=== PATIENT | female | born 1995 | race Two or more races ===

== ENCOUNTER 2024-07-07 20:12 | Emergency (ER) | payer MEDICAID ==
[~2024-07-07] VITALS: Ht 149.9 cm; Wt 81.0 kg
[2024-07-07 20:38] VITALS: BP 113/64; PULSE 88; RESP 16; O2SAT 100
--- NOTE | 2024-07-07 20:53 | ED.PDOC ---
History of Present Illness HPI Comments 28 y/o F, with a Hx of obesity and FMHx of DM, presents with c/o right-sided facial swelling and numbness, today. Patient endorses on unprovoked onset of symptoms at 1800, this evening. Patient comments on having no additional relevant or pertinent Hx aside from an isolated incident of facial swelling to her left-side that has since resolved on its own. 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 Patient denies having any speech or vision changes, tingling, fever, chills, or other associated symptoms or modifiers at this time. Time Seen by MD: 20:35 Reviewed Notes: Nurses Notes, Medications, Allergies Allergies: Coded Allergies: NO KNOWN ALLERGIES (Unverified , 07/07/24) Home Meds Active Scripts Methylprednisolone (Medrol Dosepak) 4 Mg Isaias, 4 MG PO UD, #21 TAB UAD Prov:PATT MO MD 07/07/24 Information Source: Patient Mode of Arrival: Ambulatory Severity: Moderate Timing: Hours Duration: Since onset Prehospital treatment: None Past Medical History Past Medical History (Other): obesity Surgical History: Denies all surgeries [employer] History: Denies all [employer] Hx Family History Family History: No family hx of Cancer, No family hx of Heart sonny, No family hx of HTN, No family hx ofKidney sonny, No family hx of Liver sonny, No family hx of Lung sonny, No family hx of Stroke, Family hx of DM Social History Smoker: Non-Smoker Alcohol: Denies ETOH Use Drugs: Denies Drug Use Lives In: Home Constitutional: denies: chills, diaphoresis, fatigue, fever, malaise, sweats, weakness, others EENTM: reports: others (right-sided facial swelling ); denies: blurred vision, double vision, ear bleeding, ear discharge, ear drainage, ear pain, ear ringing, eye pain, eye redness, hearing loss, mouth pain, mouth swelling, nasal discharge, nose bleeding, nose congestion, nose pain, photophobia, tearing, throat pain, throat swelling, voice changes Respiratory: denies: cough, hemoptysis, orthopnea, SOB at rest, shortness of breath, SOB with excertion, stridor, wheezing, others Cardiovascular: denies: chest pain, dizzy spells, diaphoresis, Dyspnea on exertion, edema, irregular heart beat, left arm pain, lightheadedness, palpitations, PND, syncope, others Gastrointestinal: denies: abdomen distended, abdominal pain, blood streaked bowels, constipated, diarrhea, dysphagia, difficulty swallowing, hematemesis, melena, nausea, poor appetite, poor fluid intake, rectal bleeding, rectal pain, vomiting, others Genitourinary: denies: abnormal vagina bleeding, burning, dyspareunia, dysuria, flank pain, frequency, hematuria, incontinence, pain, , vagina discharge, urgency, others Neurological: reports: numbness (right-side of face ); denies: dizziness, fainting, headache, left sided numbness, left sided weakness, paresthesia, pre-existing deficit, right sided numbness, right sided weakness, seizure, speech problems, tingling, tremors, weakness, others Musculoskeletal: denies: back pain, gout, joint pain, joint swelling, muscle pain, muscle stiffness, neck pain, others Integumetry: denies: bruises, change in color, change in hair/nails, dryness, laceration, lesions, lumps, rash, wounds, others Allergic/Immunocompromised: denies: Difficulty Healing, Frequent Infections, Hives, Itching, others Hematologic/Lymphatic: denies: anemia, blood clots, easy bleeding, easy bruising, swollen glands, others Endocrine: denies: excessive hunger, excessive sweating, excessive thirst, excessive urination, flushing, intolerance to cold, intolerance to heat, unexplained weight gain, unexplained weight loss, others Psychiatric: denies: anxiety, bipolar disorder, depression, hopeless, panic disorder, schizophrenia, sleepless, suicidal, others All Other Systems: Reviewed and Negative Physical Exam General Appearance: No Apparent Distress HEENT: Normal ENT Inspection, Pharynx Normal, TMs Normal Neck: Full Range of Motion, Non-Tender, Normal, Normal Inspection Respiratory: Chest Non-Tender, Lungs Clear, No Accessory Muscle Use, No Respiratory Distress, Normal Breath Sounds Cardiovascular: No Edema, No JVD, No Murmur, No Gallop, Normal Peripheral Pulses, Regular Rate/Rhythm Breast Exam: Deferred Gastrointestinal: No Organomegaly, Non Tender, No Pulsatile Mass, Normal Bowel Sounds, Soft Genitalia: Deferred Pelvic: Deferred Rectal: Deferred Extremities: No calf tenderness, Normal capillary refill, Normal inspection, Normal range of motion, Non-tender, No pedal edema Musculoskeletal : Apperance: Normal Neurologic: Alert, Facial Droop (Right-sided mild facial droop), No Motor Deficits, Normal Affect, Normal Mood, No Sensory Deficits Cerebellar Function: Normal Reflexes: Normal Skin: Dry, Normal Color, Warm Lymphatic: No Adenopathy Was a procedure done? Was a procedure done?: No Differential Dx Considerations may include: pradhan's palsy, CVA, TIA X-Ray, Labs, Meds, VS Vital Signs Date Time Temp Pulse Resp B/P (MAP) Pulse Ox O2 Delivery O2 Flow Rate FiO2 07/07/24 20:38 99.5 88 16 113/64 (80) 100 PROCEDURE(s): HWOCT - HEAD WITHOUT CONTRAST IMPRESSION: 1. No CT evidence of acute intracranial abnormality. The patient was being discharged on a Medrol Dosepak We feel that this patient has early Pradhan's palsy on the right side The patient will follow up with the primary care doctor Images Reviewed?: Images reviewed and evaluated by me Time of 1ST Reevaluation: 21:05 Reevaluation 1ST: Unchanged Patient Education/Counseling: Diagnosis, Treatment, Prognosis, Need For Follow Up Family Education/Counseling: No Family Present Departure 1 Departure Time of Disposition: 21:31 Impression: Primary Impression: Pradhan's palsy Disposition: 01 HOME / SELF CARE / HOMELESS Condition: Fair e-Prescriptions Methylprednisolone (Medrol Dosepak) 4 Mg Isaias 4 MG PO UD, #21 TAB UAD Prov: PATT MO MD 07/07/24 Discharged With: Self Critical Care Note Critical Care Time?: No Stability Stability form required: No Heart Score Heart Score: Heart Score Response (Comments) Value History N/A 0 EKG N/A 0 Age N/A 0 Risk Factors N/A 0 Troponin N/A 0 Total 0 I personally scribed for PATT MO MD ([email or web address]) on 07/07/24 at 20:53. Electronically submitted by Anthony Davis ([email or web address]). I personally scribed for PATT MO MD ([email or web address]) on 07/07/24 at 21:16. Electronically submitted by Anthony Davis ([email or web address]). PATT MO MD Jul 07, 2024 20:53
--- NOTE | 2024-07-07 21:09 | DVH ---
EXAM: CT HEAD WITHOUT CONTRAST INDICATION: right facial numbness TECHNIQUE: CT of the head without intravenous contrast. Radiation Dose Information: CT Dose: CTDI volume is 51.29 mGy. Dose-length product is 924.92 mGy*cm The dose indicators for CT are the volume Computed Tomography (CT) Dose Index (CTDIvol) and the Dose Length Product (DLP), and are measured in units of mGy and mGy-cm, respectively. These indicators are not patient dose, but values generated from the CT scanner acquisition factors. The report includes radiation exposure data for exposures received during this examination. COMPARISON: None FINDINGS: There is no evidence of acute intracranial hemorrhage, extra-axial collection, mass effect, midline s hift, herniation or hydrocephalus. The ventricles, sulci and cisterns are age appropriate. The ornelas-white differentiation is intact. The visualized paranasal sinuses and mastoid air cells are clear. The surrounding soft tissues and osseous structures are unremarkable. IMPRESSION: 1. No CT evidence of acute intracranial abnormality. HS:Y
[2024-07-07] MEDS ORDERED: METH4PAK PO (21:30)
== END 2024-07-07 22:05 | disposition home or self-care (01) ==
LOC: ER 20:12
DX: G51.0 Bell's palsy (principal); E66.9 Obesity, unspecified; Z68.36 Body mass index [BMI] 36.0-36.9, adult
CPT/HCPCS: 70450